=== PATIENT | female | born 1995 | race Caucasian/White ===

== ENCOUNTER 2018-09-23 10:19 | Emergency (ER) | payer OTHER ==
[2018-09-23] MEDS ORDERED: HAEMPH B POLYSAC CONJ-MENIN/PF 7.5 MCG/0.5 ML VIAL IM* (11:30)
[2018-09-23] MEDS: PNEUMOCOCCAL VACCINE 0.5 ML INJ IM* (12:12)
== END 2018-09-23 13:00 | disposition home or self-care (01) ==
LOC: FTE 10:19
DX: R16.1 Splenomegaly, not elsewhere classified (principal); Z23 Encounter for immunization
CPT/HCPCS: 90471; 90732; 99283-25

== ENCOUNTER 2018-10-03 21:13 | Emergency (ER) | payer SELFPAY, OTHER | END 2018-10-03 21:26 | disposition left against medical advice (07) | LOC: E/R 21:26 | DX: Z53.21 Procedure and treatment not carried out due to patient leaving prior to being seen by health care provider (principal) ==

== ENCOUNTER 2018-10-16 19:31 | Emergency (ER) | payer OTHER ==
[2018-10-16 22:23] LABS: URINE BLOOD (Dip) POC 3+ (NEGATIVE); URINE GLUCOSE (Dip) POC Negative (NEGATIVE); URINE KETONES (Dip) POC Negative (NEGATIVE); URINE LEUKOCYTE EST (Dip) POC 2+ (NEGATIVE); URINE NITRITE (Dip) POC Negative (NEGATIVE); URINE TOTAL PROTEIN POC Negative (NEGATIVE)
[2018-10-16] MEDS: KETOROLAC 30 MG INJ IM (22:58)
[2018-10-16 23:00] LABS: ADD MAN DIFF? NO
[2018-10-16 23:02] LABS: WHITE BLOOD COUNT 11.9 10^3/ul (4.8-10.8)
[2018-10-16 23:02] LABS: BASOPHIL # 0.1 10^3/ul (0.0-0.1); BASOPHILS % 0.6 % (0.0-2.0); EOSINOPHILS # 0.4 10^3/ul (0.0-0.5); EOSINOPHILS % 3.1 % (0.0-7.0); HEMATOCRIT 43.1 % (37.0-47.0); HEMOGLOBIN 14.2 g/dl (12.0-16.0); LYMPHOCYTES # 4.7 10^3/ul (0.8-2.9); LYMPHOCYTES % 39.7 % (15.0-51.0); MEAN CORPUSCULAR HEMOGLOBIN 28.5 pg (29.0-33.0); MEAN CORPUSCULAR HGB CONC 32.9 g/dl (32.0-37.0); MEAN CORPUSCULAR VOLUME 86.4 fl (82.0-101.0); MEAN PLATELET VOLUME 10.2 fl (7.4-10.4); MONOCYTE # 0.7 10^3/ul (0.3-0.9); MONOCYTES % 5.8 % (0.0-11.0); NEUTROPHILS % 50.5 % (39.0-77.0); PLATELET COUNT 226 10^3/UL (140-415); RED BLOOD COUNT 4.99 10^6/ul (4.20-5.40); RED CELL DISTRIBUTION WIDTH 12.6 % (11.5-14.5)
[2018-10-16 23:10] LABS: ADD UMIC YES; UR ASCORBIC ACID NEGATIVE (NEGATIVE); UR BACTERIA FEW /HPF (NONE SEEN); UR BILIRUBIN (Dip) NEGATIVE (NEGATIVE); UR BLOOD (Dip) 3+ mg/dL (NEGATIVE); UR CLARITY CLOUDY (CLEAR); UR COLOR RED (YELLOW); UR GLUCOSE (Dip) NEGATIVE (NEGATIVE); UR KETONES (Dip) NEGATIVE (NEGATIVE); UR LEUKOCYTE ESTERASE (Dip) 3+ Leu/ul (NEGATIVE); UR NITRITE (Dip) NEGATIVE (NEGATIVE); UR RBC 6 /HPF (0-5); UR SPECIFIC GRAVITY (Dip) 1.024 (1.003-1.030); UR SQUAMOUS EPITHELIAL CELL MANY /HPF (FEW); UR TOTAL PROTEIN (Dip) NEGATIVE (NEGATIVE); UR UROBILINOGEN (Dip) NEGATIVE (NEGATIVE); UR WBC 61 /HPF (0-5)
[2018-10-16 23:19] LABS: ALANINE AMINOTRANSFERASE 23 IU/L (13-69); ALBUMIN 4.6 g/dl (3.3-4.9); ALBUMIN/GLOBULIN RATIO 1.35; ALKALINE PHOSPHATASE 68 IU/L (42-121); ANION GAP 9 (5-13); ASPARTATE AMINO TRANSFERASE 17 IU/L (15-46); BILIRUBIN,INDIRECT 0.2 mg/dl (0-1.1); BILIRUBIN,TOTAL 0.2 mg/dl (0.2-1.3); BLOOD UREA NITROGEN 20 mg/dl (7-20); CALCIUM 9.6 mg/dl (8.4-10.2); CARBON DIOXIDE 31 mmol/L (21-31); CHLORIDE 104 mmol/L (97-110); Estimated GFR > 60 mL/min (>60); GLUCOSE 94 mg/dl (70-220); LIPASE 114 U/L (23-300); POTASSIUM 4.1 mmol/L (3.5-5.1); SODIUM 144 mmol/L (135-144)
== END 2018-10-17 01:07 | disposition home or self-care (01) ==
LOC: FTE 10-17 01:07
DX: N39.0 Urinary tract infection, site not specified (principal); Z85.09 Personal history of malignant neoplasm of other digestive organs
CPT/HCPCS: 36415; 76705; 80053; 81001; 81003; 81025; 83690; 85025; 96372; 99285-25

== ENCOUNTER 2018-10-24 06:51 | Observation (INO) | payer OTHER ==
[2018-10-24] MEDS: CEFAZOLIN 2 GM/50 ML (PMX) 50 ML IVPB (07:00)
[2018-10-24] MEDS ORDERED: DESFLURANE 15 MIN (07:00)
[2018-10-24] MEDS ORDERED: SUCCINYLCHOLINE CHLORIDE 100 MG/5 ML SYG IV (07:00)
[2018-10-24] MEDS ORDERED: ROCURONIUM 50 MG INJ (08:33)
[2018-10-24] MEDS ORDERED: HYDROmorphONE 2 MG/ML SYG (08:33)
[2018-10-24] MEDS ORDERED: PROPOFOL 20 ML (08:33)
[2018-10-24] MEDS ORDERED: FENTAnyl 50 MCG/ML VIAL ×2 (08:34→09:55)
[2018-10-24] MEDS ORDERED: MIDAZOLAM 1 MG/ML 2 ML INJ (08:34)
[2018-10-24] MEDS ORDERED: ONDANSETRON 4 MG INJ (08:34)
[2018-10-24 08:40] LABS: INR 0.91; PARTIAL THROMBOPLASTIN TIME 26.9 Sec (23.0-35.0); PROTIME 12.4 Sec (11.9-14.9)
[2018-10-24] MEDS ORDERED: DEXAMETHASONE 4 MG/ML 5 ML INJ (09:40)
[2018-10-24] MEDS: BUPIVACAINE 0.5%/EPI (SDV) 30 ML INJ (09:58)
[2018-10-24] MEDS: LIDOCAINE 1% (MPF) 30 ML INJ (09:58)
[2018-10-24] MEDS ORDERED: METOCLOPRAMIDE 10 MG INJ IV (11:30)
[2018-10-24] MEDS ORDERED: ONDANSETRON 4 MG INJ IV (11:30)
[2018-10-24] MEDS ORDERED: KETOROLAC 15 MG INJ IV (11:30)
[2018-10-24] MEDS ORDERED: hydrALAzine 20 MG INJ IV (11:30)
[2018-10-24] MEDS ORDERED: LABETALOL HCL 20MG INJ IV (11:30)
[2018-10-24] MEDS ORDERED: HYDROmorphONE 1 MG/5 ML IV SYRINGE IV (11:30)
[2018-10-24] MEDS ORDERED: MEPERIDINE 25 MG INJ IV (11:30)
[2018-10-24] MEDS ORDERED: EPHEDrine 25 MG/5 ML SYG IV (11:30)
[2018-10-24] MEDS ORDERED: SUGAMMADEX SODIUM 200 MG/2 ML VIAL IV (11:50)
[2018-10-24] MEDS ORDERED: morphine 2 MG INJ IV (12:00)
[2018-10-24] MEDS ORDERED: CEPASTAT LOZENGE MT (12:00)
[2018-10-24] MEDS ORDERED: ACETAMINOPHEN 325 MG TAB PO (12:00)
[2018-10-24] MEDS: HYDROmorphONE 1 MG/5 ML IV SYRINGE IV ×3 (12:37→12:53)
[2018-10-24] MEDS: HYDROCODONE/APAP (5/325) TAB PO (19:22)
[2018-10-25 08:58] LABS: ADD MAN DIFF? NO
[2018-10-25 09:02] LABS: BASOPHILS % 0.2 % (0.0-2.0); EOSINOPHILS % 0.3 % (0.0-7.0); HEMATOCRIT 42.1 % (37.0-47.0); LYMPHOCYTES % 21.1 % (15.0-51.0); MEAN CORPUSCULAR HEMOGLOBIN 28.3 pg (29.0-33.0); MEAN CORPUSCULAR HGB CONC 33.3 g/dl (32.0-37.0); MEAN CORPUSCULAR VOLUME 85.2 fl (82.0-101.0); MEAN PLATELET VOLUME 10.2 fl (7.4-10.4); MONOCYTE # 0.9 10^3/ul (0.3-0.9); MONOCYTES % 6.3 % (0.0-11.0); NEUTROPHILS % 71.7 % (39.0-77.0); PLATELET COUNT 211 10^3/UL (140-415); RED BLOOD COUNT 4.94 10^6/ul (4.20-5.40); RED CELL DISTRIBUTION WIDTH 12.7 % (11.5-14.5)
[2018-10-25 09:33] LABS: ANION GAP 5 (5-13); BLOOD UREA NITROGEN 13 mg/dl (7-20); CALCIUM 9.4 mg/dl (8.4-10.2); CARBON DIOXIDE 31 mmol/L (21-31); CHLORIDE 103 mmol/L (97-110); CREATININE 0.87 mg/dl (0.44-1.00); Estimated GFR > 60 mL/min (>60); GLUCOSE 97 mg/dl (70-220); POTASSIUM 3.7 mmol/L (3.5-5.1); SODIUM 139 mmol/L (135-144)
[2018-10-25] MEDS: HYDROCODONE/APAP (5/325) TAB PO ×2 (09:34→14:35)
[2018-10-25] MEDS: KETOROLAC 30 MG INJ IM ×2 (14:44→18:30)
== END 2018-10-25 21:55 | disposition home or self-care (01) ==
LOC: SDS 06:51 → REC 11:57 → MS1 14:00
DX: R16.1 Splenomegaly, not elsewhere classified (principal); E66.9 Obesity, unspecified; Z68.32 Body mass index [BMI] 32.0-32.9, adult; R33.9 Retention of urine, unspecified
CPT/HCPCS: 38120; 71045; 80048; 85025; 85610; 85730; 86850; 86900; 86901; 88307; 88313; 88331; 88341; 88342; 99217